=== PATIENT | female | born 1970 | race Caucasian/White ===

== ENCOUNTER 2016-10-30 12:16 | Emergency (ER) | payer OTHER ==
[~2016-10-30] VITALS: Ht 170.2 cm; Wt 65.9 kg
[2016-10-30 12:19] VITALS: BP 120/83; PULSE 85; RESP 16; O2SAT 100
--- NOTE | 2016-10-30 12:24 | ED.REPORT ---
HPI-Neurologic Deficit Date of Service Oct 30, 2016 ED Provider: Eusebio Velasco Patient is a 46 year old female with a hx of MS who presents to the ED after being referred by neurologist Dr. Tavarez for an MRI. She is experiencing L leg coldness/numbness from the L knee down for the past 24 hours. She is able to ambulate but states it feels like she is "walking on a stick." She denies swelling, redness, dysuria, hematuria, or any other symptoms. Nursing Notes Stated Complaint: ACUTE MS EXACERBATION/SENT BY DR QUINN Chief Complaint: Extremity Trauma Nursing Notes Reviewed: Yes Allergies: Coded Allergies: Sulfa (Sulfonamide Antibiotics) (Verified Allergy, Severe, 10/30/16) hydrocodone (Verified Allergy, Severe, 10/30/16) meperidine (Verified Allergy, Severe, 10/30/16) General Time Seen by Provider: 12:28 Chief Complaint Numbness leg... (Left) Hx Obtained From: Patient Arrived By: Walk-in Sudden in Onset?: Yes Onset Occurred: Yesterday Symptom Duration: Since onset Progression Since Onset: Gradually worsening Pertinent Negative: Pt denies other symptoms Immunizations: Unknown Recent Healthcare: Recent doctor visit Past Medical History Past Medical History MS Social History Other Social History: Good social support Ambulatory Status Independent Review of Systems Review of Systems Note: -redness Musculoskeletal: Denies: Extremity swelling Neurologic: Reports: Numbness, Problem walking Complete sys rev & neg: except as marked. Female: Denies: Dysuria, Hematuria Physical Exam Initial Vital Signs Vital Signs (First) Date Time Temp Pulse Resp B/P Pulse Ox O2 Delivery O2 Flow Rate FiO2 10/30/16 12:19 36.7 85 16 120/83 100 Room Air Initial VS: Reviewed, Vital signs normal Neck: Full range of motion Psychiatric: Mood/affect normal, Behavior normal, Normal thought content General/Constitutional: Awake, Alert, No acute distress Head / Eyes: Atraumatic, Normocephalic, EOMI Respiratory / Chest: No respiratory distress Cardiovascular: Heart rate NL Neurologic: Oriented X3, Speech NL, CN II - XII intact Numbness and weakness of LLE in the distribution of the lateral calf. Lower Extremity / Pelvis / MS: No swelling, No deformity Ankle / Foot: No deformity Good DP pulses L foot is cold Interpretation & Diagnostics Lab Results Interpretation Result Diagram: 10/30/16 1345 10/30/16 1345 Test 10/30/16 13:00 10/30/16 13:45 Urine Color Yellow (YELLOW) Urine Appearance Hazy (CLEAR,HAZY) Urine pH 7.0 (5.0-8.0) Urine Specific [place] 1.005 (1.003-1.035) Urine Protein Negativemg/dL (NEG,TRACE) Urine Glucose (UA) Negativemg/dL (NEGATIVE) Urine Ketones Negativemg/dL (NEGATIVE) Urine Occult Blood Negative (NEGATIVE) Urine Nitrite Negative (NEGATIVE) Urine Bilirubin Negative (NEGATIVE) Urine Urobilinogen Normalmg/dL (NORMAL) Urine Leukocyte Esterase Negative (NEGATIVE) Urine RBC 0-2/hpf (0-2) Urine WBC 0-5/hpf (0-5) Urine Epithelial Cells Occasional/hpf (NONE-MOD) Urine Crystals None seen (NONE SEEN) Urine Bacteria Moderate/hpf (NONE-FEW) Urine Hyaline Casts None/lpf (NONE) Urine Granular Casts None seen (NONE SEEN) Urine Waxy Casts None seen (NONE SEEN) Urine Red Blood Cell Casts None seen (NONE SEEN) Urine White Blood Cell Casts None seen (NONE SEEN) Urine Mucus None seen (None Seen) Urine Trichomonas None seen (NONE SEEN) Urine Yeast None (NONE SEEN) Urinalysis Comment None Urine Culture Reflexed Indicated Hold Urine Received (Received) White Blood Count 6.1th/mm3 (3.8-10.1) Red Blood Count 4.03mil/mm3 (3.90-5.20) Hemoglobin 12.3g/dL (12.0-15.6) Hematocrit 36.0% (35.0-46.0) Mean Corpuscular Volume 89.3fL (81-100) Mean Corpuscular Hemoglobin 30.5pg (27.0-35.0) Mean Corpuscular Hemoglobin Concent 34.2% (32.0-37.0) Red Cell Distribution Width 12.5% (12.3-15.4) Platelet Count 207bil/L (150-400) Neutrophils (%) (Auto) 52.9% (40-74) Lymphocytes (%) (Auto) 28.5% (14-46) Monocytes (%) (Auto) 15.2% (4-12) Eosinophils (%) (Auto) 2.6% (0-5) Basophils (%) (Auto) 0.8% (0-3) Sodium Level 140mEq/L (134-144) Potassium Level 3.9mEq/L (3.5-5.2) Chloride Level 104mEq/L (97-108) Carbon Dioxide Level 23mmol/L (18-29) Blood Urea Nitrogen 11mg/dL (6-24) Creatinine 0.63mg/dL (0.57-1.00) Estimat Glomerular Filtration Rate 147mL/min (>59) Glucose Level 86mg/dL (60-99) Calcium Level 9.1mg/dL (8.5-10.1) Total Bilirubin 0.7mg/dL (0.0-1.2) Aspartate Amino Transf (AST/SGOT) 14U/L (0-50) Alanine Aminotransferase (ALT/SGPT) 13U/L (0-32) Alkaline Phosphatase 52U/L (25-150) Total Protein 7.3g/dL (6.4-8.4) Albumin 4.3g/dL (3.4-5.0) Hold Phan Top Tube Received (Received) Lab Results Interpretation: BRAIN MRI: IMPRESSION: Stable white matter lesions are seen, which are suspicious for multiple sclerosis in this female patient of this age with this presenting history. Given the imaging appearance, PML is considered to be much less likely. No masses or abnormal enhancement can be seen. Dictated by: Nikita Gomez M.D. on 10/30/2016 at 13:32 Approved by: Nikita Gomez M.D. on 10/30/2016 at 13:43 Re-Eval/Medical Decision Med Decision/Clinical Course Unilateral numbness and weakness of the left leg, concerning for an MS exacerbation versus other etiology. Currently waiting recommendation from neurology. Care transferred to Dr. West Re-Evaluation/Progress : Time of Eval: 13:23 )( Re-Eval Neurologic Exam: Alert Re-Evaluation/Progress Note: Rechecked pt and discussed plan for care. Patient understands and agrees with plan. All questions addressed at this time. Consultation : Referral / Consult Name: Fidelia Tavarez MD Consulted With: Neurology Call Returned at: 13:30 Note: Discussed pt's case with pt's neurologist. Will come see pt in ED. Discharge & Departure Shift Change Sign-Out Patient Care Transferred: Yes Discussed Complaint(s): Yes Laboratory Evaluation: Ordered, not yet done Imaging Studies: Done, reviewed by me Additonal Information: Transfer of care to Dr. West at 1500 Impression: Primary Impression: Left leg numbness Discharge Condition All VS Reviewed: Yes Condition: Stable Referrals: Melchor Chauhan MD (PCP) Care Transferred to: Dr. West Care Transferred at: 15:00 Scribe Attestation Portions of this note were transcribed by Sana Mayers. I, Dr. Velasco personally performed the history, physical exam and medical decision-making; I reviewed and confirmed the accuracy of the information in the transcribed note. Signed by: Russ Fairchild, 10/30/16 copies to: Melchor Chauhan MD, Timothy S DO Oct 30, 2016 12:23 SANA MAYERS Oct 30, 2016 12:35
[2016-10-30] MEDS ORDERED: Methylpred Sodium Succ Inj 1,000 MG in Dextrose 5% 250 ML IV ONE (12:40)
--- NOTE | 2016-10-30 13:45 | DRSVH ---
PROCEDURE: MRI MULTIPLE SCLEROSIS BRAIN WITH AND WITHOUT CONTRAST ([id number]) INDICATIONS: Difficulty walking,Concern for PML TECHNIQUE: Noncontrast sagittal and axial FLAIR, axial and coronal T2 fast spin echo, axial VIBE, axial gradient echo, axial diffusion and ADC through the brain. After the administration of contrast, axial and co tayler VIBE with fat saturation through the brain. COMPARISON: Outside Film, MR, MR HEAD WO/W CONTRAST, 04/16/2016, 15:55. FINDINGS: Image quality: Excellent. CSF spaces: Ventricles are normal in size and shape. Basal cisterns are patent. No extra-axial flu id collections. Brain: Several scattered discrete T2 hyperintense white matter lesions are seen within the periventr icular and deep white matter as well as within the juxtacortical white matter. Minimal potential inv olvement of the undersurface of the corpus callosum can also be seen. No definite involvement of the brainstem or the posterior fossa is seen. These foci do not enhance. This appears stable compared to the 04/16/16 MRI. They are in conspicuous on precontrast T1-weighted imaging. No intracranial bleeds or mass effects. [place]-white matter interface appears intact. No abnormal intr acranial enhancement. Diffusion weighted images show no acute ischemic insults. Brainstem appears n ormal. Normal intravascular flow voids are present. Skull and face: Calvarial marrow signal is normal. Orbits appear normal. Sinuses: Sinuses and mastoids are clear. IMPRESSION: Stable white matter lesions are seen, which are suspicious for multiple sclerosis in this female patient of this age with this presenting history. Given the imaging appearance, PML is considered to be much less likely. No masses or abnormal enhancement can be seen. Dictated by: Nikita Gomez M.D. on 10/30/2016 at 13:32 Approved by: Nikita Gomez M.D. on 10/30/2016 at 13:43
[2016-10-30 13:58] LABS: BASOPHILS % (AUTO) 0.8 % (0-3); EOSINOPHILS % (AUTO) 2.6 % (0-5); MONOCYTES % (AUTO) 15.2 % (4-12); Mean Corpuscular Hemoglobin 30.5 pg (27.0-35.0); Mean Corpuscular Volume 89.3 fL (81-100); NEUTROPHILS % (AUTO) 52.9 % (40-74); Platelet Count 207 bil/L (150-400)
[2016-10-30 15:11] LABS: APPEARANCE,URINE HAZY (CLEAR,HAZY); COLOR,URINE YELLOW (YELLOW); OCCULT BLOOD,URINE NEGATIVE (NEGATIVE); UROBILINOGEN,URINE NORMAL (NORMAL)
[2016-10-30 15:24] VITALS: BP 117/74; PULSE 70; RESP 12; O2SAT 99
--- NOTE | 2016-10-30 17:05 | CONS ---
[address] [address] CONSULTATION REPORT PATIENT: CHOLO ASHER : 1970 MR#: [id number] ADMIT: 10/30/2016 JOB ID: [id number] NEUROLOGY CONSULTATION: DATE OF SERVICE: 10/30/2016 INCOMPLETE DICTATION: Dictation ends here MTDD
--- NOTE | 2016-10-30 17:48 | CONS ---
[address] [address] CONSULTATION REPORT PATIENT: CHOLO ASHER : 1970 MR#: [id number] ADMIT: 10/30/2016 JOB ID: [id number] NEUROLOGY CONSULTATION: DATE OF SERVICE: 10/30/2016 REQUESTING PHYSICIAN: Eusebio Velasco DO REASON FOR CONSULTATION: Possible acute MS exacerbation. CLINICAL HISTORY: The patient is a 46-year-old female with history of multiple sclerosis, which has been quiescent. She switched to Aubagio disease modifying treatment for multiple sclerosis in May 2015, and has been stable without any side effects or problems from treatment. She reports that yesterday she began to experience numbness on her left leg to the foot. She called my triage nurse earlier in the day who states that she was not able to walk and her leg was completely cold with rapid onset beginning yesterday. She is noted to be CASA virus positive. The patient has not been on chemotherapy drugs or Tysabri. She had been on Avonex prior to changing to Aubagio. The change was made due to continued side effects of chest pain and flu-like symptoms. Although there have been no reported cases of PML with Aubagio, the abrupt change in MS symptoms with her CASA virus positivity raises a concern for possible PML versus an MS exacerbation. She denies recent stressors. She has been on vacation and returned to work yesterday. 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 She noted back pain before the onset of symptoms. She was advised to go to the emergency department for emergent imaging to evaluate for PML or MS exacerbation and initiate steroid treatments with a plan to continue after discharge. The MRI of the brain however showed no change from her previous MRI. I have personally reviewed this on the PAC system from [facility] in comparison to the study done on April 16, 2016. There were no new or enhancing lesions. There was no evidence to suggest PML or other cause for her symptoms. In reviewing her previous MRIs, there is no evidence of cord lesions on the MRI of the cervical or thoracic spine from 2014 and 2013. Her past medical history, social history, and family history are unchanged except as noted in the History of Present Illness from the Neurology note dated July 15, 2016. REVIEW OF SYSTEMS: Back pain, numbness, walking difficulty. All other systems were reviewed and reported as negative. MEDICATIONS: Outpatient: Vitamin D, Celexa, gabapentin, rizatriptan, modafinil, Aubagio, omeprazole, p.r.n. Roxicet, magnesium, 81 mg aspirin, B12. Inpatient medications: One g IV Solu-Medrol. DRUG ALLERGIES: 1. HYDROCODONE. 2. MEPERIDINE. 3. SULFA. PHYSICAL EXAMINATION: Blood pressure 117/74, pulse oximetry 98% on room air, respiratory rate 12, pulse 70. The patient is resting comfortably in her hospital bed though looks worried. Head: Normocephalic, atraumatic. No evidence of carotid bruits. Lungs clear to auscultation. Cardiac: Regular rate and rhythm. S1, S2 present. No edema or lesions noted on lower extremities. NEUROLOGIC EXAMINATION: The patient is alert and oriented x3, with language and speech intact and fluent. No evidence of memory impairment. Recent memory, fund of knowledge evaluated and found to be intact. Mood is euthymic. Cranial nerves: Pupils equally reactive to light and accommodation. No facial asymmetry. Sensation intact on the face bilaterally. Tongue midline. Palate raises symmetrically. SCM and shoulder shrug, as well as hearing appear to be intact. Motor strength: Motor strength is intact upper and lower extremities. Patient has difficulty with left straight leg raise but denies pain. She states it is due to weakness. Deep tendon reflexes are 2+ throughout with patella on the left 3+. Plantar reflex flexor. Tone: Intact upper and lower extremities. Sensation diminished pinprick on the left lateral aspect of the leg and foot and to a lesser extent on the inner calf on the left. Intact otherwise to pinprick and vibration. Coordination: Intact coordination by observation. Gait: The patient walks carefully but steadily without assistance. LABORATORY DATA: CBC, CMP and UA all without abnormality. IMAGING STUDIES: As per the History of Present Illness. Please see full report for detail. ASSESSMENT/RECOMMENDATION: The patient is a 46-year-old female with history of multiple sclerosis, which has been quiescent. She had acute onset of numbness and weakness yesterday which was associated with back pain. MRI of the brain showed no new or enhancing lesions to explain her symptoms. Most likely, the patient's symptoms represent lumbosacral radiculopathy, L4-5 distribution. The patient declined having an MRI of the lumbar spine. She was encouraged to use heat and cold, gentle back exercises and follow up with her primary care doctor or call the Neurology office to request MRI if symptoms fail to improve.I cannot completely eliminate MS as a cause for her symptoms but without even having spine lesions this seems less likely. If symptoms worsen or new symptoms develop, re-evaluation is recommended for consideration of multiple sclerosis exacerbation which seems less likely as mentioned above. Thank you for this consultation. LITTLE
== END 2016-10-30 16:50 | disposition home or self-care (01) ==
LOC: SED 14:37
DX: R20.0 Anesthesia of skin (principal); R26.2 Difficulty in walking, not elsewhere classified; G35 Multiple sclerosis; Z88.2 Allergy status to sulfonamides; Z88.5 Allergy status to narcotic agent
CPT/HCPCS: 36415; 70553; 80053; 81000; 85025; 87086; 87088; 96365; 99285; A9585; J2930